=== PATIENT | female | born 1990 | race Caucasian/White ===

== ENCOUNTER 2019-08-13 10:59 | Inpatient (IN) | payer OTHER ==
[~2019-08-13] VITALS: Ht 160 cm; Wt 71.7 kg
[2019-08-27] MEDS ORDERED: PRENATAL TABLE1 EAC3 PO (17:19)
== END 2019-08-30 12:33 | DRG 807 ==
LOC: EDSTATUS 08-22 13:15 → ADM 08-22 13:15 → LDR 08-27 16:58 → SURG-SUITE 08-28 12:42 → OB/GYN 09-09 13:15
PROVIDERS: ADMIT Obstetrics & Gynecology; ATTEND Obstetrics & Gynecology
PROC: 4A1HXCZ Monitoring of Products of Conception, Cardiac Rate, External Approach (ICD-10-PCS; 2019-08-27)
PROC: 10E0XZZ Delivery of Products of Conception, External Approach (ICD-10-PCS; principal; 2019-08-28)
PROC: 0W8NXZZ Division of Female Perineum, External Approach (ICD-10-PCS; 2019-08-28)
DX: O80 Encounter for full-term uncomplicated delivery (principal); Z37.0 Single live birth; Z3A.38 38 weeks gestation of pregnancy

== ENCOUNTER 2021-03-18 12:09 | Outpatient (CLI) | payer OTHER ==
[~2021-03-18 12:09] MED LIST: PRENATAL TABLE1 EAC3 PO
== END 2021-03-18 13:04 | disposition home or self-care (01) ==
LOC: NST 12:09
PROVIDERS: ATTEND Obstetrics & Gynecology
DX: Z34.83 Encounter for supervision of other normal pregnancy, third trimester (principal)

== ENCOUNTER 2021-04-17 15:24 | Inpatient (IN) | payer OTHER ==
[~2021-04-17] VITALS: Ht 160 cm; Wt 73.9 kg
== END 2021-04-20 12:50 | disposition home or self-care (01) | DRG 788 ==
LOC: LDR 15:24 → SURG-SUITE 22:30 → OB/GYN 04-29 15:44
PROVIDERS: Obstetrics & Gynecology; ADMIT Obstetrics & Gynecology; ATTEND Obstetrics & Gynecology
PROC: 4A1HXCZ Monitoring of Products of Conception, Cardiac Rate, External Approach (ICD-10-PCS; 2021-04-17)
PROC: 10D00Z1 Extraction of Products of Conception, Low, Open Approach (ICD-10-PCS; principal; 2021-04-17 20:00)
DX: O62.1 Secondary uterine inertia (principal); Z3A.38 38 weeks gestation of pregnancy; Z37.0 Single live birth; Z20.822 Contact with and (suspected) exposure to COVID-19

== ENCOUNTER 2023-09-29 12:00 | Inpatient (IN) | payer OTHER ==
[~2023-09-29] VITALS: Ht 160 cm; Wt 2.7 kg
[2023-09-29] MEDS ORDERED: DHA ALGAL-900300 MG PO (13:39)
[2023-09-29] MEDS ORDERED: IRON236 MG PO (13:39)
[2023-10-09] MEDS ORDERED: RINGERS SOLUTION,LACTATED 1,000 ML IV SCH (14:00)
[2023-10-09] MEDS ORDERED: ERYTHROMYCIN BASE 1 GM TUBE OP ONE (15:02)
[2023-10-09] MEDS ORDERED: OXYTOCIN 10 UNITS/ML VIAL ONE (15:02)
[2023-10-09] MEDS ORDERED: CITRIC ACID/SODIUM CITRATE 30 ML BLIST.PACK PO SCH (15:45)
[2023-10-09] MEDS ORDERED: CEFAZOLIN SODIUM 1,000 MG VIAL IV SCH (15:45)
[2023-10-09 15:51] LABS: HEMATOCRIT 34.3 % (36.0-45.00); HEMOGLOBIN 11.9 g/dL (12.0-15.00); MEAN CELL VOLUME 85.6 fL (80.00-100.00); MEAN CORPUSCULAR HEMOGLOBIN 29.8 pg (27.00-32.0); MEAN CORPUSCULAR HGB CONC 34.8 g/dl (32.0-36.0); PLATELET COUNT 131 K/uL (150-450); RED BLOOD COUNT 4.01 M/uL (4.00-6.00); RED CELL DISTRIBUTION WIDTH 13.8 % (11.5-14.5)
[2023-10-09 16:03] LABS: INR 0.97; PARTIAL THROMBOPLASTIN TIME 29.1 SECONDS (22.0-34.0); PROTHROMBIN TIME 10.6 SECONDS (9.0-11.5)
[2023-10-09 16:12] LABS: ALBUMIN 2.9 gm/dL (3.4-5.0); BILIRUBIN TOTAL 0.34 mg/dL (0.3-1.2); CALCIUM 8.2 mg/dL (8.5-10.1); CREATININE SERUM 0.48 mg/dL (0.55-1.02); GFR 151.85; GLOBULINA 3.3 G/DL (2.4-3.5); POTASSIUM 3.72 mEq/L (3.5-5.1); TOTAL PROTEIN 6.2 gm/dL (6.4-8.2)
[2023-10-09] MEDS ORDERED: OXYTOCIN 1,000 ML IV SCH (19:45)
[2023-10-09] MEDS ORDERED: MEPERIDINE HCL/PF 50 MG/ML VIAL IM PRN (19:45)
[2023-10-09] MEDS ORDERED: IBUprofen 400 MG TABLET PO PRN (19:45)
[2023-10-10] MEDS ORDERED: OxyCODONE HCL/APAP UD (PERCOCET) PO PRN (08:30)
[2023-10-10 11:08] LABS: HEMATOCRIT 37.1 % (36.0-45.00); HEMOGLOBIN 12.5 g/dL (12.0-15.00); MEAN CELL VOLUME 86.9 fL (80.00-100.00); MEAN CORPUSCULAR HEMOGLOBIN 29.4 pg (27.00-32.0); MEAN CORPUSCULAR HGB CONC 33.8 g/dl (32.0-36.0); RED BLOOD COUNT 4.27 M/uL (4.00-6.00); RED CELL DISTRIBUTION WIDTH 13.9 % (11.5-14.5)
[2023-10-10 11:14] LABS: PLATELET COUNT 136 K/uL (150-450)
[2023-10-10] MEDS ORDERED: SIMETHICONE 125 MG CAPSULE PO SCH (13:00)
[2023-10-11 07:07] LABS: hav igm Negative (Negative); hcv Non Reactive (Non Reactive); hep b c Negative (Negative); hep b s ag Negative (Negative)
== END 2023-10-12 14:48 | disposition home or self-care (01) | DRG 788 ==
LOC: O/R 10-09 13:44 → LDR 10-09 13:44 → O/R 10-09 17:59 → OB/GYN 10-09 20:12
PROVIDERS: Anesthesiology Pain Medicine; Obstetrics & Gynecology; ADMIT Obstetrics & Gynecology; ATTEND Obstetrics & Gynecology
PROC: 4A1HXCZ Monitoring of Products of Conception, Cardiac Rate, External Approach (ICD-10-PCS; 2023-10-09)
PROC: 10D00Z1 Extraction of Products of Conception, Low, Open Approach (ICD-10-PCS; principal; 2023-10-09 18:45)
DX: O34.211 Maternal care for low transverse scar from previous cesarean delivery (principal); Z3A.38 38 weeks gestation of pregnancy; Z37.0 Single live birth; Z20.822 Contact with and (suspected) exposure to COVID-19

== ENCOUNTER 2024-03-21 15:02 | Outpatient (CLI) | payer OTHER ==
[~2024-03-21 15:02] MED LIST changes: +DHA ALGAL-900300 MG PO; +IRON236 MG PO
== END 2024-03-21 15:07 | disposition home or self-care (01) ==
LOC: SONOGRAMA 15:02
PROVIDERS: ATTEND Obstetrics & Gynecology
DX: N63.11 Unspecified lump in the right breast, upper outer quadrant (principal); N63.12 Unspecified lump in the right breast, upper inner quadrant